=== PATIENT | female | born 1945 ===

== ENCOUNTER 2019-04-05 12:09 | Outpatient (CLI) | payer OTHER ==
[~2019-04-05] VITALS: Ht 152.4 cm; Wt 50.8 kg
== END 2019-04-05 12:25 | disposition home or self-care (01) ==
LOC: OFIC 805 12:09
DX: J30.89 Other allergic rhinitis (principal); H61.21 Impacted cerumen, right ear; H93.90 Unspecified disorder of ear, unspecified ear; R09.81 Nasal congestion